=== PATIENT | male | born 1940 | race Caucasian/White ===

== ENCOUNTER → 2018-10-24 | Outpatient (CLI) | payer MEDICARE, OTHER | LOC: M.ULTRA 10-23 08:51 | DX: G45.9 Transient cerebral ischemic attack, unspecified (principal) ==

== ENCOUNTER → 2018-11-16 | Outpatient (CLI) | payer MEDICARE, OTHER | LOC: M.MRI 11-05 15:24 | DX: I65.21 Occlusion and stenosis of right carotid artery (principal); G31.9 Degenerative disease of nervous system, unspecified; M25.511 Pain in right shoulder; Z88.1 Allergy status to other antibiotic agents; Z88.2 Allergy status to sulfonamides ==

== ENCOUNTER → 2018-11-29 | Outpatient (CLI) | payer MEDICARE, OTHER | LOC: M.MRI 11:15 | DX: M47.22 Other spondylosis with radiculopathy, cervical region (principal); M25.78 Osteophyte, vertebrae; M48.02 Spinal stenosis, cervical region; R29.898 Other symptoms and signs involving the musculoskeletal system; M25.511 Pain in right shoulder ==

== ENCOUNTER → 2019-01-07 | Outpatient (CLI) | payer MEDICARE, OTHER ==
--- NOTE | 2019-01-07 09:58 | 2DMMODE ---
[place] [address] 2 D/M-MODE ECHOCARDIOGRAM Name: PAXTON GONZALEZ Room: [facility]#: [id number] Admission: 01/07/19 Attend Phys: Seun Hinkle, Discharge: Date of : 44 Date of Service: 01/07/19 0957 Report #: [id number] THIS REPORT FOR: //name// APPROVED REPORT Study performed: 01/07/2019 08:55:11 EXAM: Comprehensive 2D, Doppler, and color-flow Echocardiogram Patient Location: Out-Patient BSA: 2.06 HR: 77 bpm BP: 160/89 mmHg Other Information Study Quality: Good Indications Hypertension/HDD 2D Dimensions IVSd: 11.02 (7-11mm) LVOT Diam: 20.42 (18-24mm) LVDd: 47.17 mm PWd: 10.67 (7-11mm) Ascending Ao: 35.77 (22-36mm) LVDs: 27.36 (25-40mm) Aortic Root: 24.89 mm Volumes Left Atrial Volume (Systole) LA ESV Index: 25.60 mL/m2 Aortic Valve AoV Peak Shamar.: 1.13 m/s AO Peak Gr.: 5.11 mmHg LVOT Max P.14 mmHg AO Mean Gr.: 3.03 mmHg LVOT Mean P.33 mmHg LVOT Max V: 0.89 m/s AO V2 VTI: 22.60 cm LVOT Mean V: 0.51 m/s MEDARDO (VTI): 2.84 cm2 LVOT V1 VTI: 19.59 cm Mitral Valve E/A Ratio: 0.61 MV Decel. Time: 302.50 ms MV E Max Shamar.: 0.53 m/s MV PHT: 87.73 ms MVA (PHT): 2.51 [place] [address] 2 D/M-MODE ECHOCARDIOGRAM Name: LISAPAXTON Gregory Room: [facility]#: [id number] Admission: 01/07/19 Attend Phys: Seun Hinkle, Discharge: Date of : 44 Date of Service: 01/07/19 0957 Report #: [id number] TDI E/Lateral E': 8.83 E/Medial E': 6.63 Medial E' Shamar.: 0.08 m/s Lateral E' Shamar.: 0.06 m/s Pulmonary Valve PV Peak Shamar.: 0.94 m/s PV Peak Gr.: 3.54 mmHg Left Ventricle The left ventricle is normal size. There is normal LV segmental wall motion. There is normal left ventricular wall thickness. Left ventricular systolic function is normal. The left ventricular ejection fraction is within the normal range. LVEF is 60-65%. Grade I - abnormal relaxation pattern. Right Ventricle The right ventricle is normal size. The right ventricular systolic function is normal. Atria The left atrium size is normal. The right atrium size is normal. Aortic Valve Mild aortic valve sclerosis. No aortic regurgitation is present. There is no aortic valvular stenosis. Mitral Valve The mitral valve is normal in structure. Trace mitral regurgitation. No evidence of mitral valve stenosis. Tricuspid Valve The tricuspid valve is normal in structure. There is no tricuspid valve regurgitation noted. Pulmonic Valve The pulmonary valve is normal in structure. There is no pulmonic valvular regurgitation. Great Vessels The aortic root is normal in size. IVC is normal in size and collapses >50% with inspiration. Pericardium There is [place] [address] 2 D/M-MODE ECHOCARDIOGRAM Name: LISAPAXTON Gregory Room: [facility]#: [id number] Admission: 01/07/19 Attend Phys: Seun Hinkle, Discharge: Date of : 44 Date of Service: 01/07/19 0957 Report #: [id number] <Conclusion> The left ventricle is normal size. There is normal left ventricular wall thickness. Left ventricular systolic function is normal. The left ventricular ejection fraction is within the normal range. LVEF is 60-65%. Grade I - abnormal relaxation pattern. The right ventricle is normal size. The left atrium size is normal. Mild aortic valve sclerosis. No aortic regurgitation is present. There is no aortic valvular stenosis. The mitral valve is normal in structure. The tricuspid valve is normal in structure. There is no pericardial effusion. There is normal LV segmental wall motion. <ELECTRONICALLY SIGNED> By: Erasto Odom MD, FACC 01/07/19 0957 6 Erasto Odom MD, FACC /INF
== END ==
LOC: M.CRD 08:41
DX: I35.8 Other nonrheumatic aortic valve disorders (principal); I10 Essential (primary) hypertension; R29.898 Other symptoms and signs involving the musculoskeletal system; M25.511 Pain in right shoulder

== ENCOUNTER → 2021-01-12 | Outpatient (CLI) | payer MEDICARE, OTHER | LOC: M.CT 13:24 | PROVIDERS: ATTEND Nurse Practitioner Family | DX: I25.10 Atherosclerotic heart disease of native coronary artery without angina pectoris (principal); R07.9 Chest pain, unspecified; R91.8 Other nonspecific abnormal finding of lung field ==

== ENCOUNTER → 2021-02-05 | Outpatient (CLI) | payer MEDICARE, OTHER ==
--- NOTE | 2021-02-05 18:07 | CARDNUC ---
[place] [address] CARDIAC NUCLEAR IMAGING REPORT Name: LISAPAXTON Gregory Room: [facility]#: [id number] Admission: 02/05/21 Attend Phys: Gregory Acosta Discharge: Date of : 44 Date of Service: 02/05/21 1807 Report #: [id number] THIS REPORT FOR: cc: GABY HAYDEN DEBRA L FNP Liston, Michael J. MD [facility] ~ APPROVED REPORT Study performed: 02/05/2021 09:24:03 Exam: Nuclear Stress Test Indication: Chest pain Patient Location: Out-Patient Stress Tech: Andra Boles Stress Nurse: Jo Barnes RN NM Tech:FLOWER Talamantes Ht: 5 ft 10 in Wt: 196 lbs BSA: 2.07 m2 BMI: 28.12 Medical History Medical History: asa-81 atorvastatin, lisinopril, propranolol, verapamil Medications: asa-81, atorvastatin, lisinopril, propranolol, verapamil Allergies: minocycline, sulfa Cardiac Risk Factors: Age, Tobacco History (Former), HTN, Hyperlipidemia, FHX of CAD Exercise History: Sedentary Stress Test Details Stress Test: Pharmacologic stress testing performed using 0.4 mg of regadenoson per 5 mL given IV over 10 seconds. Reason for pharmacologic stress test: physical limitation. HR Resting HR: 70 bpm Max Heart Rate (APMHR): 142 bpm Max HR Achieved: 94 bpm Target HR (85% APMHR): 120 bpm % of APMHR: 66 Recovery HR: 92 bpm BP Resting BP: 159/95 mmHg Max BP: 142/75 [place] [address] CARDIAC NUCLEAR IMAGING REPORT Name: PAXTON GONZALEZ Room: [facility]#: [id number] Admission: 02/05/21 Attend Phys: Gregory Acosta Discharge: Date of : 44 Date of Service: 02/05/21 1807 Report #: [id number] ECG Resting ECG: Sinus Rhythm Stress ECG: Sinus Rhythm ST Change: None Arrhythmia: None Recovery ECG: Sinus Rhythm Recovery ST Change: None Recovery Arrhythmia: None Clinical Reason for Termination: Completed protocol The patient tolerated Lexiscan infusion without significant cardiac symptom. Nurse Comments pt too unsteady on feet to walk to treadmill Stress ECG Conclusion The baseline twelve-lead EKG shows sinus rhythm without significant ST segment or T wave abnormality. EKGs obtained during and post Lexiscan infusion shows sinus rhythm with no significant ST segment or T wave changes when compared to baseline. There were no stress-induced arrhythmias. NM EXAM: Myocardial Perfusion REST/STRESS Imaging Protocol: Rest Tc-99m/Stress Tc-99m 1 day Resting Data Rest SPECT myocardial perfusion imaging was performed in supine position 30 minutes following the intravenous injection of 10.9 mCi of Tc-99m Sestamibi. Time of rest injection: 804 Date: 02/05/2021 The images were gated to evaluate regional wall motion and calculate left ventricular ejection fraction. Administration Route: IV Pharmacologic Stress Pharmacologic stress test was performed by injecting Regadenoson 0.4 mg IV push followed by the intravenous injection of 33.5 mCi of Tc-99m Sestamibi. Time of stress injection: 944 Date: 02/05/2021 Administration Route: IV Gated Stress SPECT was performed 40 minutes after stress injection. The images were gated to evaluate regional [place] [address] CARDIAC NUCLEAR IMAGING REPORT Name: PAXTON GONZALEZ Room: [facility]#: [id number] Admission: 02/05/21 Attend Phys: Gregory Acosta Discharge: Date of : 44 Date of Service: 02/05/21 1807 Report #: [id number] left ventricular ejection fraction. Prone imaging was performed. Study Quality Study: Good Artifact: No artifact Study Data At rest, the left ventricular ejection fraction was 70%.. Post stress, the left ventricular ejection was 72%.. TID = 0.99. Perfusion Perfusion images obtained at rest and post Lexiscan stress showed uniform uptake of the radioisotope throughout the myocardium. There were no defects to suggest infarct or ischemia. Wall Motion Normal left ventricular wall motion. Nuclear Conclusion ECG Findings: negative for ischemia Clinical Findings: negative for ischemia Nuclear Findings: negative for ischemia Exercise Capacity: not assessed Left Ventricular Function: normal Risk Study: low Myocardial perfusion imaging shows no defect to suggest infarct or ischemia. Left ventricular systolic function appears normal on gated studies. This is a low risk study. <Conclusion> The baseline twelve-lead EKG shows sinus rhythm without significant ST segment or T wave abnormality. EKGs obtained during and post Lexiscan infusion shows sinus rhythm with no significant ST segment or T wave changes when compared to baseline. There were no stress-induced arrhythmias. <ELECTRONICALLY SIGNED> By: Oneil Fonseca MD, FACC 02/05/211806 06 06 Oneil Fonseca MD, FACC /INF
== END ==
LOC: M.NUC 01-27 08:52
PROVIDERS: ATTEND Internal Medicine
DX: I10 Essential (primary) hypertension (principal); I20.8 Other forms of angina pectoris; Z82.49 Family history of ischemic heart disease and other diseases of the circulatory system